=== PATIENT | female | born 1990 | race Caucasian/White ===

== ENCOUNTER 2017-08-16 14:34 | Inpatient (IN) ==
--- OUTSIDE RECORDS SUMMARY | 2017-08-16 14:39 | External Medical Summary | Continuity of Care Document ---
:1990 Author Organization [facility]. Allergies Active Description Code Type Severity Reaction Onset Reported/ Identified Relationship Clinical to Patient Status Yes Penicillins 476 3 N/A N/A Medications Medication Packaging Start Date Stop Date Route Dosage Sig Tablet 04/10/2017 05/01/2017 DICLEGIS take 1 tablet by oral route every day in the morning, 1 tablet in the mid-afternoo n, and 2 tablets at bedtime Tablet 05/01/2017 06/07/2017 DICLEGIS take 1 tablet by oral route every day in the morning, 1 tablet in the mid-afternoo n, and 2 tablets at bedtime Tablet 05/08/2017 06/07/2017 PREDNISONE take (0.5MG/KG) by oral route every day Problems Date Dx Coded Attending Type Code Diagnosis Diagnosed By 02/23/2014 Barrington SHERMAN MD V72.41 PREG LAN R EXAM-NEGATIVE 06/27/2016 Barrington SHERMAN MD R10.13 Epigastric pain ALN R 06/18/2017 Frederick Riley Z34.82 Encounter for L suprvsn of normal , second trimester 06/18/2017 Frederick Riley Z3A.19 19 weeks L gestation of Procedures Code Description Performed By Performed On BARI BYRNE MD, 02/23/2014 36381 CHORIONIC GONADOTROPIN LAN R ASSAY BARI BYRNE MD, 06/27/2016 90270 COMPREHEN METABOLIC PANEL LAN R BARI BYRNE MD, 06/27/2016 48037 COMPLETE CBC, AUTOMATED LAN R 06/18/2017 07289 Ultrasnd exam of preg uterus, compl Results Test Result Range CBC - 06/28/16 07:55 Eos # 0.10 x10^3 0-0.5 Eos % 1.5 % 0-4 HCT 39.4 % 37.0-47.0 HGB 13.6 G/DL 12.0-16.0 Lymph # 1.93 x10^3 1.0-4.0 Lymph % 28.5 % 20-50 MCH 29.7 PG 27.0-31.0 MCHC 34.5 G/DL 32.0-36.0 MCV 86.0 FL 81-99 Harris # 0.60 x10^3 0.0-0.8 Harris % 8.8 % 1.0-9.0 MPV 11.7 FL 6.0-10.0 Platelet 237 x10^3 150-400 RBC 4.58 x10^3 4.20-5.40 RDW 12.8 % 12-15 WBC 6.78 x10^3 4.8-10.8 Baso # 0.03 x10^3 0-0.2 Baso % 0.4 % 0-2 Neut % 60.8 % 50-70 Neut # 4.12 x10^3 3.0-7.0 Comprehensive Metabolic Panel - 06/28/16 08:11 Sodium 144 MMOLL 134-145 Potassium 4.1 MMOLL 3.6-5.0 Chloride 100 MMOLL 98-107 CO2 27 MMOLL 22-30 Glucose 76 MG/DL 75-110 BUN 20 MG/DL 9-20 Creatinine .78 MG/DL 0.8-1.7 Calcium 10.2 MG/DL 8.4-10.2 T Bili .5 MG/DL 0.2-1.3 T. Protein 7.4 G/DL 6.3-8.2 A/G Ratio 1.0 RATIO Albumin 3.7 G/DL 3.5-5.0 Alk Phos 63 U/L 38-126 ALT 37 U/L 11-66 AST 83 U/L 14-36 EGFR 92 MLMIN Encounters ACCT No. Visit Discharge Status Pt. Type Provider Facility Loc./Unit Complaint Date/Time [id number] 06/28/2016 06/28/2016 DIS Outpatien ULLOM [place] [facility] 07:34:00 07:34:00 t CHAVEZ Tiwari MD, [facility] R [id number] 02/23/2014 02/23/2014 DIS Outpatien ULLOM [place] [facility] 13:15:00 13:15:00 t CHAVEZ Tiwari MD, [facility] R [id number] 08/10/2017 08/10/2017 CLS Outpatien Sobbing, 14:00:00 23:59:59 t Frederick Octavio [id number] 07/12/2017 07/12/2017 CLS Outpatien Sobbing, 15:45:00 23:59:59 t Frederick Octavio [id number] 06/18/2017 06/18/2017 CLS Outpatien Sobbing, 15:45:00 23:59:59 t Frederick Octavio [id number] 06/07/2017 06/07/2017 CLS Outpatien Sobbing, 14:30:00 23:59:59 t Frederick Cunningham [id number] 05/08/2017 05/08/2017 CLS Outpatien Johnson, 08:30:00 23:59:59 t Megha Prescott [id number] 05/01/2017 05/01/2017 CLS Outpatien Johnson, 11:57:00 23:59:59 t Megha Prescott [id number] 04/10/2017 04/10/2017 CLS Outpatien Johnson, 08:30:00 23:59:59 t Megha Prescott [id number] 03/14/2017 03/14/2017 CLS Outpatien Hild, 11:05:00 23:59:59 isabel Clark
--- OUTSIDE RECORDS SUMMARY | 2017-08-16 14:39 | External Medical Summary | Continuity of Care Document ---
:1990 Author Organization [facility] Address [address] [place], [place] [address] Phone Allergies, Adverse Reactions, Alerts Substance Reaction Severity Status Penicillins Unknown Active Medications Medication Instructions Dosage Effective Dates Status Comments (start - stop) Oral Anesthetic 20 % - Active mucosal gel Tylenol 325 mg tablet take 2 tablet by oral 650 MG - Active route every 6 hours as needed Problems Condition Effective Dates (start - stop) Clinical Status Obesity complicating , second - trimester Encounter for suprvsn of normal - , second trimester 22 weeks gestation of - Encntr screen for infections w sexl - mode of transmiss Encounter for screening for oth - infec/parastc diseases Encounter for suprvsn of normal - , first trimester Encounter for screening of - mother 9 weeks gestation of - Unspecified contact dermatitis, - unspecified cause Encounter for suprvsn of normal - , first trimester 13 weeks gestation of - Encounter for suprvsn of normal - , second trimester 17 weeks gestation of - Encounter for suprvsn of normal - , second trimester 19 weeks gestation of - GERD Active Procedures Procedure Date OB Visit No Charge Results Test Name Date and Time Measure Units Reference Range Abnormal Flag Comments Unknown Advance Directives Directive Yes / No Effective Date File Name Unknown Encounters Encounter Practice Location Reason(s) Diagnoses Date Provider Care Team Description For Visit Members Associates Speedy Obesity Sobbing Referring In Womens complicating 7 Frederick. Provider: Health PA, , second 7 700 Megha PO [address] trimesterEncounte Medical Johnson T, 1522, r for suprvsn of Center [address] [place] [address], normal , [facility], second Suite Center [id number], weeks 120, Leoncio 120, [place] gestation of Speedy Ruff, tel:+ [place], [address], [id number]. [place]. tel: tel: [phone] Samuel Ruff Encounter for May-2 Sobbing Referring In Womens Ultrasound suprvsn of normal [place]. Provider: Jayne SANTIAGO, , second 7 700 Megha PO Box weeks Medical Johnson T, 1522, gestation of [address], [facility], Suite Center [id number], 120, Leoncio 120, [place] Speedy Ruff, tel:+ [place], [address], [id number]. [place]. tel: tel: [phone] Samuel Ruff Encounter for May- Sobbing Referring In Womens suprvsn of normal [place]. Provider: Jayne SANTIAGO, , second 7 700 Megha PO Box [email or web address] weeks Medical Johnson T, 1522, gestation of Center [address] [place] [address], [facility], Suite Center [id number], 120, Leoncio 120, [place] Speedy Ruff, tel:+ [place], [address], [id number]. [place]. tel: tel: [phone] Samuel Ruff Unspecified Jamie- Johnson Referring In Womens contact 3-201 Megha. Provider: Jayne SANTIAGO, dermatitis, 7 700 Megha PO Box unspecified Medical Johnson T, 1522, causeEncounter Center [address] [place] [address], for suprvsn of Leoncio Valle, normal , 120, Center [id number], first [email or web address] Leoncio Ruff 120, [place] weeks gestation Speedy OSULLIVAN, tel:+ of [phone] [place], , [place]. [id number]. tel: tel: [phone] Samuel Ruff Encntr screen for Johnson Referring In Womens infections w sexl 6-201 Megha. Provider: Health JACK, mode of 7 700 Megha [facility] Johnson T, 1522, r for screening Center [address] [place], for oth Dr, [facility] Medical [place], infec/parastc 120, Center [id number], diseasesEncounter Speedy, [facility] 120, [place] for suprvsn of Speedy OSULLIVAN, tel:2 normal , [phone] [place], [id number] first , [place]. [id number]. trimesterEncounte tel: tel: r for [phone] screening of mother9 weeks gestation of Family History Family Member Diagnosis Age At Onset No family history of Epilepsy No family history of Stroke No family history of Lung Disease No family history of Diabetes No family history of Ovarian Cancer No family history of Colon Cancer No family history of Osteoporosis No family history of Thyroid Disorder No family history of Cardiovascular Disease No family history of Hypertension No family history of Kidney Disease No family history of Breast Cancer Immunizations Vaccine Date Status Comments Unknown Payers Payer name Insurance type Covered green party ID Authorization(s) [facility] [id number] Social History Type Description Quantity Date Captured Alcohol Use Details No Caffeine Use Details Unknown Tobacco Use Status Smoking Status Former smoker Vital Signs Date / Height Weight BMI Pulse Blood Temperature Respiratory Body Head BMI Time: Rate Pressure Rate Surface Circumference percentile Area 204.00 33.9 126/72 -2017 lbs 4 mm[Hg] 4:14 kg/m PM eter (2) Chief Complaint And Reason For Visit Unknown Chief Complaint And Reason For Visit Reason For Referral Reason For Referral Unknown Plan Of Care Date Type Action Status Appointment Cari An BOOKED Future Order: Radiology Order Complete OB Ultrasound > 14 Ordered Weeks ([id number]) Date Type Problem Goal Intervention Status Start Date Unknown. History Of Present Illness Encounter Date Complaint History Of Present Illness This patient has no known history of present illness Functional Status Encounter Date Functional Assessment Cognitive Assessment Unknown Medications Administered Medication Instructions Dosage Effective Dates (start - stop) Status Comments Drug Treatment Unknown Instructions Date Instruction Additional Information HIV and other routine tests May-16-2017 risk factors identified by history anticipated course of care nutrition and weight gain counseling, special diet toxoplasmosis precautions (cats / raw meat) sexual activity exercise indications for ultrasound influenza vaccine environmental / work hazards travel tobacco (ask, advise, assess, assist and arrange) alcohol illicit / recreational drugs use of any medications (including supplements, vitamins, herbs, OTC drugs) smoking counseling domestic violence seat belt use childbirth classes / hospital facilities hospital registration genetic testing new ob handbook
--- OUTSIDE RECORDS SUMMARY | 2017-08-16 14:39 | External Medical Summary | Continuity of Care Document ---
:1990 Author Organization [facility] Address [address] [place], [place] [id number] Phone Allergies, Adverse Reactions, Alerts Substance Reaction Severity Status Penicillins Unknown Active Medications Medication Instructions Dosage Effective Dates Status Comments (start - stop) Tylenol 325 mg tablet take 2 tablet by oral 650 MG - Active route every 6 hours as needed Problems Condition Effective Dates (start - stop) Clinical Status Encounter for suprvsn of normal - , second trimester 19 weeks gestation of - Encntr screen for [...] second trimester 17 weeks gestation of - GERD Active Procedures Procedure Date Ultrasound exam of preg uterus, complete Results Test Name Date and Time Measure Units Reference Range Abnormal Flag Comments Unknown Advance Directives Directive Yes / No Effective Date File Name Unknown Encounters Encounter Practice Location Reason(s) Diagnoses Date Provider Care Team Description For Visit Members Samuel Ruff Encounter for Sobbing Referring In [facility] Ultrasound suprvsn of normal 4-201 Frederick. Provider: Health MA, , second 7 700 Megha PO Box [email or web address] weeks Medical Elizabeth T, 1522, gestation of Center [address] [place], [facility], Suite Center [id number], 120, Leoncio 120, [place] Speedy Ruff, [place]: [place], [address], [id number]. [place]. tel: tel: [phone] Samuel Ruff Encounter for May- Sobbing Referring In Womens suprvsn of normal 3-201 [place]. Provider: Jayne SANTIAGO, , second 7 700 Megha PO Box weeks Medical Johnson T, 152, gestation of Center [address] [place] [address], Drive, [facility], Suite Center [id number], 120, Leoncio 120, [place] Speedy Ruff, tel: [place], [address], [id number]. [place]. tel: tel: [phone] Samuel Ruff Unspecified Jamie-1 Johnson Referring In Womens contact 3-201 Megha. Provider: Jayne SANTIAGO, dermatitis, 7 700 Megha PO Box unspecified Medical Johnson T, 152, causeEncounter Center [address] [place] [address], for suprvsn of Dr [facility] SHI, normal , 120, Center [id number], first [email or web address] Ruff, Leoncio 120, [place] weeks gestation Speedy OSULLIVAN, tel: of [phone] [place], , [place]. [id number]. tel: tel: [phone] Samuel Ruff Encntr screen for March- Johnson Referring In Womens infections w sexl 6-201 Megha. Provider: Jayne SANTIAGO, mode of 7 700 Megha PO Box transmissEncounte Medical Johnson T, 152, r for screening Center [address] [place] [address], for oth Dr [facility], infec/parastc 120, Center [id number], diseasesEncounter Speedy, Leoncio 120, [place] for suprvsn of Speedy OSULLIVAN, tel: normal , [phone] [place], first , [place]. [id number]. trimesterEncounte tel: tel:316 r for [phone] screening of mother9 weeks gestation of Family [...] Unknown Payers Payer name Insurance type Covered alliance party ID Authorization(s) [employer] [id number] Social History Type Description Quantity Date Captured Unknown Vital Signs Date / Height Weight BMI Pulse Blood Temperature Respiratory Body Head BMI Time: Rate Pressure Rate Surface Circumference percentile Area Unknown Chief Complaint And Reason For Visit Unknown Chief Complaint And Reason For Visit Reason For Referral Reason For Referral Unknown Plan Of Care Date Type Action Status Appointment Cari An BOOKED Future Order: Radiology Order Complete OB Ultrasound > 14 Ordered Weeks ([id number]) Date Type Problem Goal Intervention Status Start Date Unknown. History Of Present Illness Encounter Date Complaint History Of Present Illness This patient has no known history of present illness Functional Status Encounter Date Functional Assessment Cognitive Assessment Unknown Medications Administered Medication Instructions Dosage Effective Dates (start - stop) Status Comments Drug Treatment Unknown Instructions Date Instruction Additional Information HIV and other routine tests risk factors identified by history anticipated course [...]
--- OUTSIDE RECORDS SUMMARY | 2017-08-16 14:39 | External Medical Summary ---
:1990 Author Organization [facility]. Summary purpose CCDA Sent to [facility] Chief Complaint and Reason for Visit No authorized Reason for Visit (Admitting Diagnosis) is available for this visit. Problem list No authorized problems tracked for continuity of care are available for this visit. Encounters No authorized problems tracked for encounter diagnoses are available for this visit. Medications No medications recorded for this patient visit Allergies, adverse reactions, alerts No allergy information is available for this patient. Immunizations No immunizations recorded for this patient visit Relevant diagnostic tests and/or laboratory data RESULTS CBC :40:00 Result Normal Range Units WBC 6.78 4.8-10.8 x103/mm3 Neutrophil % 60.8 50-70 % Lymph % 28.5 20-50 % Deuel % 8.8 1.0-9.0 % Eosinophil % 1.5 0-4 % Basophil % 0.4 0-2 % Neutrophil # 4.12 3.0-7.0 x103/mm3 Lymph # 1.93 1.0-4.0 x103/mm3 Deuel # 0.60 0.0-0.8 x103/mm3 Eosinophil # 0.10 0-0.5 x103/mm3 Basophil # 0.03 0-0.2 x103/mm3 RBC 4.58 4.20-5.40 x103/mm3 HGB 13.6 12.0-16.0 g/dl HCT 39.4 37.0-47.0 % MCV 86.0 81-99 FL MCH 29.7 27.0-31.0 pg MCHC 34.5 32.0-36.0 g/dl RDW 12.8 12-15 % Platelet 237 150-400 x103/mm3 MPV H 11.7 6.0-10.0 FL Chemistry Group :40:00 Result Normal Range Units Sodium 144 134-145 mmol/L Potassium 4.1 3.6-5.0 mmol/L Chloride 100 98-107 mmol/L CO2 27 22-30 mmol/L Glucose 76 75-110 mg/dl BUN 20 9-20 mg/dl Creatinine L .78 0.8-1.7 mg/dl eGFR 92 ml/min. Total Protein 7.4 6.3-8.2 g/dl Albumin 3.7 3.5-5.0 g/dl Calcium 10.2 8.4-10.2 mg/dl Alk Phos 63 38-126 U/L AST H 83 14-36 U/L ALT 37 11-66 U/L T Bili .5 0.2-1.3 mg/dl A/G Ratio 1.0 Ratio History of procedures Procedure Code Code Type Description Date Performed Performing Physician 45906 CPT-4 COMPLETE CBC, 06-27-2016 LAN DUKES AUTOMATED 95969 CPT-4 COMPREHEN METABOLIC 06-27-2016 [facility] BARI DUKES PANEL Functional status No functional or cognitive status observations are available for this visit. Vital signs No authorized vital signs are available for this visit. Social history No Social History or smoking status observations were recorded for this visit. ( Unknown if ever smoked.) Treatment Plan No treatment plan text is available for this visit. Hospital discharge instructions No discharge instruction text is available for this visit.
--- OUTSIDE RECORDS SUMMARY | 2017-08-16 14:39 | External Medical Summary | Continuity of Care Document ---
:1990 Author Organization [facility] Address [address] [place], [place] [id number] Phone Allergies, Adverse Reactions, Alerts Substance Reaction [...] Speedy Obesity Sobbing Referring In Womens complicating 7-201 Frederick. Provider: Health PA, , second 7 700 Megha PO Box trimesterEncounte Medical Johnson T, 1522, r for suprvsn of Center [address] [place] [address], normal , [facility], second Suite Center [id number], [email or web address] weeks 120, Leoncio 120, [place] gestation of Speedy Ruff, tel:+ [place], [address], [id number]. [place]. tel: tel: [phone] Samuel Ruff Encounter for May-2 Sobbing Referring In Womens Ultrasound suprvsn of normal [place]. Provider: Jayne SANTIAGO, , second 7 700 Megha PO Box weeks Medical Johnson T, 1522, gestation of [address], [facility], Suite Center [id number], 120, Leoncio 120, [place] Speedy Rfuf, tel:+ [place], [address], [id number]. [place]. tel: tel: [phone] Samuel Ruff Encounter for May- Sobbing Referring In Womens suprvsn of normal [place]. Provider: Jayne SANTIAGO, , second 7 700 Megha PO Box [email or web address] weeks Medical Johnson T, 1522, gestation of Center [address] [place] [address], [facility], Suite Center [id number], 120, Leoncio 120, [place] Speedy Ruff, tel:+ [place], [address], [id number]. [place]. tel: tel: [phone] Samuel Ruff Unspecified Jamie- Johnson Referring In Womens contact 3-201 Megha. Provider: Jayne SANTIAGO, dermatitis, 7 700 Megha PO Box unspecified Medical Johnson T, 1522, causeEncounter Center [address] [place] [address], for suprvsn of Leoncio Valle, normal , 120, Center [id number], first [email or web address] Leoncio Ruff 120, [place] weeks gestation Speedy OSULLIVAN, tel:+ of [phone] [place], , [place]. [id number]. tel: tel: [phone] Samuel Ruff Encntr screen for Johnson Referring In Womens infections w sexl 6-201 Megha. Provider: Jayne SANTIAGO, mode of 7 700 Megha [facility] Johnson T, 1522, r for screening Center [address] [place], for oth Dr, [facility] Medical [place], infec/parastc 120, Center [id number], diseasesEncounter Speedy, [facility] 120, [place] for suprvsn of Speedy OSULLIVAN, tel:2 normal , [phone] [place], [address] first , [place]. [id number]. trimesterEncounte tel: tel: r for [phone] screening of mother9 weeks gestation of Family [...] Insurance type Covered green party ID Authorization(s) [facility] [id number] Social History Type Description Quantity Date Captured [...] Of Care Date Type Action Status Appointment Anshul An BOOKED Future Order: Radiology Order Complete OB Ultrasound > 14 Ordered Weeks ([id number]) Date Type Problem Goal Intervention Status Start [...]
--- OUTSIDE RECORDS SUMMARY | 2017-08-16 14:39 | External Medical Summary | Continuity of Care Document ---
:1990 Author Organization [facility] Address [address] [place], [place] [phone] Phone Allergies, Adverse Reactions, Alerts Substance Reaction [...] second trimester 17 weeks gestation of - Encntr screen for [...] Encounter for Sobbing Referring In [facility] Ultrasound suprvsn of normal 4-201 Frederick. Provider: [facility], , second 7 700 Megha PO Box [email or web address] weeks Medical Elizabeth T, 1522, gestation of Center 700 [facility], Suite Center , 120, Leoncio 120, [place] Speedy Ruff, tel: [place], [address], [id number]. [place]. tel: tel: [phone] Samuel Ruff Encounter for Tomasz-1 Sobbing Referring In Womens suprvsn of normal 3-201 [place]. Provider: Jayne SANTIAGO, , second 7 700 Megha PO Box [email or web address] weeks Medical Johnson T, 152, gestation of Center [address] [place] [address], Drive, Medical [place], Suite Center [id number], 120, Leoncio 120, [place] Speedy Ruff, [place]: [place], [address], [id number]. [place]. tel: tel: [phone] Samuel Ruff Unspecified Jamie-1 Johnson Referring In Womens contact 3-201 Megha. Provider: Jayne SANTIAGO, dermatitis, 7 700 Megha PO Box unspecified Medical Johnson T, 152, causeEncounter Center [address] [place] [address], for suprvsn of Dr [facility] Lavonne OSULLIVAN, normal , 120, Center [id number], first [email or web address] Ruff, [facility] 120, [place] weeks gestation Speedy OSULLIVAN, tel: of [place], , [place]. [id number]. tel: tel: [phone] Samuel Ruff Encntr screen for March- Johnson Referring In Womens infections w sexl 6-201 Megha. Provider: Jayne SANTIAGO, mode of 7 700 Megha PO Box transmissEncounte Medical Johnson T, 152, r for screening Center [address] [place] [address], for oth Dr [facility] SHI, infec/parastc 120, Center [id number], diseasesEncounter Speedy, Leoncio 120, [place] for suprvsn of Speedy OSULLIVAN, tel: normal , [phone] [place], first , [place]. [id number]. trimesterEncounte tel: tel:316 r for [phone] screening of mother9 weeks gestation of Family [...] Insurance type Covered alliance party ID Authorization(s) [employer] [id number] Social History Type Description Quantity Date Captured Alcohol Use Details No Caffeine Use Details Unknown Tobacco Use Status Smoking Status Former smoker Vital Signs Date / Height Weight BMI Pulse Blood Temperature Respiratory Body Head BMI Time: Rate Pressure Rate Surface Circumference percentile Area 200.60 33.3 124/ lbs 8 mm[Hg] 2:41 kg/m PM eter (2) Chief Complaint And Reason For Visit Unknown Chief Complaint And Reason For Visit Reason For Referral Reason For Referral Unknown Plan Of Care Date Type Action Status Appointment Cari An BOOKED Future Order: Radiology Order Complete OB Ultrasound > 14 Ordered Weeks ([id number]) Date Type Problem Goal Intervention Status Start [...]
[2017-08-16 15:08] VITALS: BMI 34.0
[2017-08-16] MEDS: LR 1,000 ML IV SCH (15:09)
[2017-08-16] MEDS: HYDROMORPHONE 2 MG/ML INJECTION IVP PRN ×3 (15:42→20:56)
--- NOTE | 2017-08-16 16:57 | Ultrasound Report ---
Indication: abdominal pain PROCEDURE: US OB fht only: Encounter: Initial Comparison: None LMP dating is not provided Comparison: None PROCEDURE: US OB fht only: Technique: Grayscale and color Doppler transabdominal sonographic imaging was performed. Findings: Single living intrauterine gestation. Cervix is normal length and closed. Placenta is posterior. cardiac activity detected at a rate of 138 bpm. Amniotic fluid index is normal at 20.3 cm. Largest vertical pocket in the right upper quadrant is 7.1 cm. Impression: Amniotic fluid index as above. .
--- NOTE | 2017-08-16 16:59 | Ultrasound Report ---
Indication: abdominal pain PROCEDURE: US appendix: Encounter: Initial Comparison: None Technique: Grayscale sonographic imaging of the right lower quadrant abdomen was performed. Findings/ Impression: A candidate appendix was not visualized. No free fluid or adenopathy seen. .
--- NOTE | 2017-08-16 16:59 | Ultrasound Report ---
Indication: abdominal pain PROCEDURE: US renal BI: Encounter: Initial Comparison: None Technique: Grayscale and color Doppler sonographic imaging of both kidneys and bladder was performed. FINDINGS: Both kidneys are present with normal cortical thickness and echogenicity. Mild right and minimal left hydronephrosis. No obvious stone disease. The right kidney measures 12 cm in length, and the left kidney measures 12 cm in length. Bladder appears sonographically normal. Bilateral ureteral jets were seen. IMPRESSION: Mild right and minimal left hydronephrosis. .
--- NOTE | 2017-08-16 17:22 | OB/GYN History & Physical ---
- History of Present Illness Date of Admission: 08/16/17 14:34 Reason for Admission: other (Abdominal pain) History of Present Illness: 26 y/o female at 27.6 wga presented to the office with acute onset of abdominal pain that was severe she reported eating well the last couple days and positive fm. Denies LOF, VB. pain is intermentant and was getting worse. Exam in office showed abdominal TTP ND, McBurney sign negative and no rebound. She had a UA in office that was positive for blood and Ketones. She was sent to for eval along with fluids and pain control. She is resting comfortable in bed : 2 Review of Systems - Cardiovascular Cardiovascular: Absent: chest pain, palpitations - Respiratory Respiratory: Absent: cough, dyspnea, wheezing - Gastrointestinal Gastrointestinal: Absent: change in bowel habits, constipation, diarrhea, nausea , vomiting - Genitourinary Genitourinary: Present: as per HPI Menstruation: Present: as per HPI - Musculoskeletal Musculoskeletal: Absent: arthralgias, back pain - Integumentary/Breasts Integumentary: Absent: pruritus, rash - Neurological Neurological: Absent: dizziness, headache(s), numbness - Psychiatric Psychiatric: Absent: anxiety, depression - Endocrine Endocrine: Absent: cold intolerance, heat intolerance [facility] Patient Stated Medical History Herpes No Human Immunodeficiency Virus ( No HIV) Maternal Gestational Diabetes No Medications Allergies Allergy/AdvReac Type Severity Reaction Status Date / Time Penicillins Allergy Verified 08/16/17 15:07 Exam Vital signs: Temperature 99.3 F 08/16/17 16:53 Pulse Rate 108 H 08/16/17 14:34 Respiratory Rate 20 08/16/17 14:34 Blood Pressure 141/86 H 08/16/17 14:34 Pulse Oximetry 99 08/16/17 14:34 - Constitutional Present: no acute distress - Neck Exam Present: supple - Respiratory Exam Present: CTA bilaterally - Cardiovascular Exam Present: RRR. Absent: murmur - Abdominal Exam Present: soft Comments: Gravid - Detailed Pelvic Exam Bladder: Present: tenderness - Extremities Exam Extremities: Present: no edema - Neurological Exam Present: alert, oriented X3 PLATE EMBOSSER Results - Labs CBC & Chem 7: 08/16/17 15:04 08/16/17 15:04 Labs: UA Ur Collection Type Urine, clean catch 08/16/17 14:30 Urine Color Yellow (YELLOW) 08/16/17 14:30 Urine pH 6.0 (5.0-8.0) 08/16/17 14:30 Ur Specific [place] 1.025 (1.015-1.025) 08/16/17 14:30 Urine Protein Negative (NEGATIVE) 08/16/17 14:30 Urine Glucose (UA) Negative (NEGATIVE) 08/16/17 14:30 Urine Ketones 3+ (NEGATIVE) A 08/16/17 14:30 Urine Occult Blood 2+ (NEGATIVE) A 08/16/17 14:30 Urine Nitrate Negative (NEGATIVE) 08/16/17 14:30 Urine Bilirubin Negative (NEGATIVE) 08/16/17 14:30 Urine Urobilinogen 0.2 EU/DL (NORMAL) 08/16/17 14:30 Ur Leukocyte Esterase Negative (NEGATIVE) 08/16/17 14:30 Antepartum Assessment and Plan (1) Cystitis during in second trimester, antepartum Problem details: Renal sonom neg, Abd sono neg for appendicitis, WBC normal for . Awaiting urine cx will start Rochephine treat as Pyelonephritis and continue observation, continue NPO for now PCN all is not true all her dad was allergic not her. Current visit: Yes Status: Acute
[2017-08-16] MEDS ORDERED: CEFTRIAXONE 1 G in NS 100 ML IV SCH (17:30)
[2017-08-16] MEDS ORDERED: DiphenhydrAMINE 50 MG/ML INJECTION IVP PRN (17:42)
[2017-08-16] MEDS: NS 1,000 ML IV SCH ×2 (18:13→21:52)
[2017-08-17] MEDS: LR 1,000 ML IV SCH ×3 (00:13→21:15)
[2017-08-17] MEDS: HYDROMORPHONE 2 MG/ML INJECTION IVP PRN ×10 (00:13→22:41)
[2017-08-17] MEDS ORDERED: LR 1,000 ML IV SCH (09:00)
--- NOTE | 2017-08-17 09:44 | OB/GYN Progress Note ---
GROMMET MAN Progress Note - Subjective Today's Date: 08/17/17 Pain controlled over night with IV Dilaudid. Denies N/V, denies F/C. Positive FM - Objective Vital signs: Temperature 98.1 F 08/17/17 06:40 Pulse Rate 93 08/17/17 06:40 Respiratory Rate 18 08/17/17 06:40 Blood Pressure 114/60 08/17/17 06:40 Pulse Oximetry 100 08/17/17 06:40 Urine Output: good General: alert and oriented Respiratory: non-labored Abdomen: tender, rebound, guarding Extremities: non-tender Edema: none Laboratory Result: 08/17/17 06:12 08/16/17 15:04 Labs: UA Ur Collection Type Urine, clean catch 08/16/17 14:30 Urine Color Yellow (YELLOW) 08/16/17 14:30 Urine pH 6.0 (5.0-8.0) 08/16/17 14:30 Ur Specific [place] 1.025 (1.015-1.025) 08/16/17 14:30 Urine Protein Negative (NEGATIVE) 08/16/17 14:30 Urine Glucose (UA) Negative (NEGATIVE) 08/16/17 14:30 Urine Ketones 3+ (NEGATIVE) A 08/16/17 14:30 Urine Occult Blood 2+ (NEGATIVE) A 08/16/17 14:30 Urine Nitrate Negative (NEGATIVE) 08/16/17 14:30 Urine Bilirubin Negative (NEGATIVE) 08/16/17 14:30 Urine Urobilinogen 0.2 EU/DL (NORMAL) 08/16/17 14:30 Ur Leukocyte Esterase Negative (NEGATIVE) 08/16/17 14:30 - Assessment and Plan (1) Cystitis during in second trimester, antepartum Assessment and Plan: 26 y/o at 28 wga with Abdominal pain -pain not improved and increasing in symptoms including guarding and rebound. Renal sono negative for stones, pain not c/w with pyleonephritis Appendicitis suspected. Discussed with general surgeon wiil move to OR for DX laparoscopy possible appendectomy. Discussed R/B/A to procedure with pt including infection, injury to bowel, bladder, uterus, . Bleeding with need for transfusion. labor/ delivery and need for transfer to [facility]. and . questions elicited and answered. Comment: Renal sonom neg, Abd sono neg for appendicitis, WBC normal for . Awaiting urine cx will start Rochephine treat as Pyelonephritis and continue observation, continue NPO for now PCN all is not true all her dad was allergic not her. [facility] day 2 symptoms increasing suspicous for appendicitis. Move to OR with general surgery.
[2017-08-17] MEDS ORDERED: CEFAZOLIN 1 G INJECTION IVP ONE (09:47)
[2017-08-17] MEDS ORDERED: FentaNYL 100 MCG/2 ML INJECTION ONE ×3 (10:11→12:02)
[2017-08-17] MEDS ORDERED: ROCURONIUM 50 MG/5 ML INJECTION IVP ONE ×2 (10:11→12:40)
--- NOTE | 2017-08-17 10:49 | Anesthesia Preoperative Report ---
Anesthesia Preoperative Record - Date and Time Date: 08/17/17 Preoperative Diagnosis: Allergies/Adverse Reactions: Allergies Allergy/AdvReac Type Severity Reaction Status Date / Time Penicillins Allergy Verified 08/16/17 15:07 - Vital Signs Vital Signs: Temperature 98.1 F 08/17/17 06:40 Pulse Rate 93 08/17/17 06:40 Respiratory Rate 18 08/17/17 06:40 Blood Pressure 114/60 08/17/17 06:40 Pulse Oximetry 100 08/17/17 06:40 Height and Weight: Height 1.68 m Weight 95.708 kg Body Mass Index 34.0 - Medications Inpatient Medications: Current Medications Diphenhydramine HCl (Benadryl) 25 - 50 mg IVP Q6HR PRN PRN Reason: Itching Last Admin: 08/16/17 21:23 Dose: 50 mg Hydromorphone HCl (Dilaudid) 1 mg IVP Q2H PRN PRN Reason: Pain Last Admin: 08/17/17 08:59 Dose: 1 mg Lactated Ringer's (Lactated Ringers) 1,000 mls @ 125 mls/hr IV .Q8H [facility] Last Admin: 08/17/17 00:13 Dose: Not Given Ceftriaxone Sodium 1 g/ Sodium (Chloride) 100 mls @ 200 mls/hr IV Q24H [facility] Last Infusion: 08/16/17 19:00 Dose: Infused Sodium Chloride (Normal Saline) 1,000 mls @ 75 mls/hr IV .[id number] [facility] Last Infusion: 08/17/17 09:10 Dose: 0 mls/hr - Surgical History Reproductive Surgery/Treatment: DENIES: Section Anesthesia Reactions: None Hx Family Anesthesia Reaction: No History of Motion Sickness: No - Social History Smoking Status: Never smoker Substance Use Type: does not use Alcohol Intake Frequency: holidays/special occasions only Last Drink: unknown - Pertinent Findings Laboratory: CBC and BMP 08/17/17 06:12 08/16/17 15:04 BMP 08/16/17 15:04 Sodium 140 Potassium 3.6 Chloride 110 H Carbon Dioxide 20 L BUN 6.0 L Creatinine 0.4 L Glucose 71 Calcium 9.3 Liver Function 08/16/17 Range/Units 15:04 Total Bilirubin 0.50 (0.20-1.30) MG/DL AST 17 (14-36) U/L ALT 28 (9-52) U/L Alkaline Phosphatase 83 (38-126) U/L Albumin 3.7 (3.5-5.0) G/DL Urine 08/16/17 Range/Units 14:30 Urine Color Yellow (YELLOW) Urine Clarity Clear Urine pH 6.0 (5.0-8.0) Ur Specific [place] 1.025 (1.015-1.025) Urine Protein Negative (NEGATIVE) Urine Glucose (UA) Negative (NEGATIVE) EKG: Sinus Tachycardia - Physical Exam Respiratory Exam: Present: lungs clear, bilateral breath sounds equal Cardiovascular Exam: Present: regular rate and rhythm, no murmur - Airway Assessment Mallampati Score: I TMD: 3 Fingerbreadths Neck Extension: good Overall Assessment: no airway concerns - ASA ASA Score: 1 - Plan Anesthesia: General Inhalation Gases - Discussion Discussion: Discussed risks/options/alternatives of anesthesia and questions answered. Patient consents. Nursing pain assessment noted. Present for Discussion: spouse Attestation Statement: Prior to the delivery of any anesthetic medication, I examined the patient, developed the plan, obtained the patient's consent and discussed the risk and benefits of the procedure with the patient/guardian. - Additional Information Seen by Anesthesia: Yes
[2017-08-17] MEDS ORDERED: BUPIVACAINE 0.25% (2.5mg/ml) PF 30ml INJECTION ONE (11:11)
[2017-08-17] MEDS ORDERED: LACRI-LUBE EYE OINT 3.5gm ONE (11:46)
[2017-08-17] MEDS ORDERED: DEXAMETHASONE 4 MG/ML INJECTION ONE (11:47)
[2017-08-17] MEDS ORDERED: ONDANSETRON 4 MG/2 ML INJECTION ONE (11:47)
[2017-08-17] MEDS: NS 1,000 ML IV SCH ×3 (12:19→15:16)
[2017-08-17] MEDS ORDERED: MORPHINE SULFATE 2 MG SYRINGE IVP PRN (12:48)
[2017-08-17] MEDS ORDERED: ONDANSETRON 4 MG/2 ML INJECTION IVP PRN (12:48)
--- NOTE | 2017-08-17 12:48 | OB/GYN Procedure Note ---
CHILD DEVELOPMENT SPECIALIST Operative Note Date of Operation: 08/17/17 Comments: suspected appendicitis, 28 wga Postoperative Diagnosis: Same as Preoperative Comments: Confirmed appendicitis CHILD DEVELOPMENT SPECIALIST Procedure: Dx Laparoscopy (Appendectomy) Surgeon: Eliseo Kwong MD Comments: Frederick Riley MD Anesthesia Provider: Connor Durbin MD Anesthesia Type: General Estimated Blood Loss:: Minimal Findings: Purelent fluid in right pericolic gutter, Inflamed appendix with filmy adhesions Description of Procedure: See dictation
[2017-08-17] MEDS ORDERED: BUPIVACAINE 0.25% (2.5mg/ml) PF 30ml INJECTION INFIL ONE (13:10)
[2017-08-17] MEDS ORDERED: METOCLOPRAMIDE 10mg/2ml INJECTION IM ONE (13:46)
[2017-08-17] MEDS ORDERED: METOCLOPRAMIDE 10mg/2ml INJECTION IVP ONE (13:50)
--- NOTE | 2017-08-17 14:11 | Anesthesia Postoperative Note ---
- Status Patient Participated in Evaluation: Patient Participated in Person Vital Signs: Temperature 98.7 F 08/17/17 13:47 Pulse Rate 111 H 08/17/17 13:45 Respiratory Rate 26 H 08/17/17 13:45 Blood Pressure 139/77 08/17/17 13:45 Pulse Oximetry 91 08/17/17 13:45 Respiratory Function: Airway Patent EKG: Sinus Tachycardia Hydration: IV Infusing Complications During Recover: None Apparent Post Anesthesia Care Notes: additional analgesic required in PACU due to rapid metabolism as noted intraop for rocuronium muscle relaxant. - Follow-Up Instructions Instructions: Per Surgeon
--- NOTE | 2017-08-17 14:37 | OB/GYN Progress Note ---
SASH MAKER Post Op Progress Note - General Date: 08/17/17 POD:: Post Op Check Pain: controlled Nausea or Vomiting: No Ambulating: No - Objective Vital Signs: Vital Signs Temp 98.7 F 08/17/17 13:47 Pulse 111 H 08/17/17 13:45 Resp 26 H 08/17/17 13:45 BP 139/77 08/17/17 13:45 Pulse Ox 91 08/17/17 13:45 Urine Output: good General: alert and oriented Cardiovascular: regular rate,rhythm Respiratory: non-labored Abdomen: soft (Doing well post op, plan dismissal POD#1, Unasyn until dismissal ), tender, rebound, guarding Extremities: non-tender Edema: none Laboratory Results: 08/17/17 06:12 08/16/17 15:04 Labs: UA Ur Collection Type Urine, clean catch 08/16/17 14:30 Urine Color Yellow (YELLOW) 08/16/17 14:30 Urine pH 6.0 (5.0-8.0) 08/16/17 14:30 Ur Specific [place] 1.025 (1.015-1.025) 08/16/17 14:30 Urine Protein Negative (NEGATIVE) 08/16/17 14:30 Urine Glucose (UA) Negative (NEGATIVE) 08/16/17 14:30 Urine Ketones 3+ (NEGATIVE) A 08/16/17 14:30 Urine Occult Blood 2+ (NEGATIVE) A 08/16/17 14:30 Urine Nitrate Negative (NEGATIVE) 08/16/17 14:30 Urine Bilirubin Negative (NEGATIVE) 08/16/17 14:30 Urine Urobilinogen 0.2 EU/DL (NORMAL) 08/16/17 14:30 Ur Leukocyte Esterase Negative (NEGATIVE) 08/16/17 14:30 - Assessment (1) Cystitis during in second trimester, antepartum Comment: Renal sonom neg, Abd sono neg for appendicitis, WBC normal for . Awaiting urine cx will start Rochephine treat as Pyelonephritis and continue observation, continue NPO for now PCN all is not true all her dad was allergic not her. [facility] day 2 symptoms increasing suspicous for appendicitis. Move to OR with general surgery. Status: Acute
--- NOTE | 2017-08-17 14:37 | Consultation ---
DATE OF CONSULTATION 08/17/2017 HISTORY OF PRESENT ILLNESS This 26-year-old patient with a 28-week intrauterine was admitted to [facility] on 08/16/2017 with acute abdominal pain. Urinalysis at the office was positive for blood and ketones. At admission to [facility] on 08/16/2017, white blood cell count was 15,100 with 4 bands. Ultrasound examination of the abdomen looking for the appendix was performed on 08/16/2017. The appendix was not able to be visualized at this ultrasound exam. A renal ultrasound examination was performed on 08/16/2017 which showed mild right and minimal left hydronephrosis. Treatment with Rocephin was started on 08/16/2017. The abdominal pain was not improved on 08/17/2017. The patient states that the abdominal pain is worse on 08/17/2017 than it was on the previous evening. Dr. Riley thought that the patient had increased guarding and rebound at abdominal examination on 08/17/2017 compared to the previous day. The patient states that her abdominal pain was initially more of a generalized abdominal pain. She states that the pain has localized down to the right lower quadrant of the abdomen over the last 24 hours. The patient states that when someone pushes on the left side of her abdomen, she feels pain at the right lower quadrant of the abdomen. The abdominal pain is now worse in intensity and more localized to the right lower quadrant. The clinical findings are thought to be more suspicious for acute appendicitis at this time. Repeat white blood cell count on 08/17/[address] Riley has recommended diagnostic laparoscopy to look for acute appendicitis as a cause for the abdominal pain. PAST MEDICAL HISTORY Previous operations: Umbilical hernia repair as a child. PHYSICAL EXAMINATION VITAL SIGNS: Temperature is 98.1 degrees Fahrenheit oral. Pulse is 93. Respiratory rate is 18. Blood pressure is 114/60. Oxygen saturation is 100% on room air. ABDOMEN: There is an old infraumbilical incision scar. Gravid state of the abdomen is present. There is abdominal tenderness at examination of the abdomen. This seems to be more prominent at the right lower quadrant of the abdomen than elsewhere. The patient did state that palpation of the left side of the abdomen caused pain at the right lower quadrant of the abdomen. The abdomen is soft. LABORATORY DATA White blood cell count was 15,100 with 4 bands on 08/16/2015. White blood cell count was 9400 with no bands on 08/17/2017 after some treatment with Rocephin. IMAGING DATA The patient did have ultrasound examination of the appendix attempted on 2016 but the appendix was not able to be visualized at this imaging study. The patient did undergo a renal ultrasound on 08/16/2017 which showed mild right and minimal left hydronephrosis. IMPRESSION 1. 28-week intrauterine . 2. Acute right lower quadrant abdominal pain suspicious for possible acute appendicitis. PATIENT EDUCATION I did talk with the patient about the option of undergoing diagnostic laparoscopy with possible appendectomy, as recommended by Dr. Riley, for further evaluation. The nature of this procedure was explained to the patient [id number]. Expected benefits were reviewed. Alternatives were reviewed. One alternative would be to treat the patient with a course of antibiotic treatment. Potential risks and complications of diagnostic laparoscopy with possible appendectomy were discussed with the patient including anesthetic risk to the patient and the fetus. Another risk would be bleeding. Another risk would be infection. Risks of wound healing problems were discussed. Risks of injury to intraabdominal structures were discussed. The chance that a laparoscopy procedure might need to be converted over to an open laparotomy procedure was discussed. Questions were solicited from the patient. All of her questions were answered. The patient does wish to proceed. PLAN Diagnostic laparoscopy with possible appendectomy for evaluation of acute right lower quadrant abdominal pain. CAMILO
[2017-08-17] MEDS: AMPICILLIN/SULBACTAM 3 G in NS 100 ML IV SCH ×2 (14:52→21:01)
[2017-08-17] MEDS: Oxycodone/Acetaminophen 5/325 1 TAB PO PRN ×2 (16:44→20:57)
[2017-08-17] MEDS ORDERED: DiphenhydrAMINE 25 MG CAPSULE PO PRN (22:21)
[2017-08-18] MEDS: OXYCODONE/APAP 7.5 MG/325 MG TABLET PO PRN ×3 (01:04→10:19)
[2017-08-18] MEDS: AMPICILLIN/SULBACTAM 3 G in NS 100 ML IV SCH ×2 (03:41→10:15)
[2017-08-18 03:49] VITALS: PULSE 100
--- NOTE | 2017-08-18 08:20 | Operative Note ---
DATE OF OPERATION 08/17/2017 PREOPERATIVE DIAGNOSES 1. Acute appendicitis. 2. Intrauterine at 28 weeks gestation. POSTOPERATIVE DIAGNOSES 1. Acute appendicitis. 2. Intrauterine at 28 weeks gestation. OPERATION Laparoscopic appendectomy. SURGEON Eliseo Kwong MD [employer] Frederick Riley DO ANESTHESIA General ASA CLASS 2 FINDINGS This patient did have an intrauterine at 28 weeks gestation. The patient did have acute appendicitis. The appendix was acutely inflamed. There was inflammatory exudate over the surface of the appendix and mesoappendix. The appendix was adherent to surrounding structures. There was purulent fluid around the appendix. The appendix did not appear to be perforated. There was no periappendiceal abscess. The cecum appeared normal. The terminal ileum appeared normal. The right ovary and fallopian tube appeared normal. The liver and gallbladder appeared normal. The ascending colon appeared normal. DESCRIPTION OF OPERATION The patient was placed in supine position on the operating table. General anesthesia was satisfactorily induced. A Dugan catheter was inserted into the urinary bladder. The abdomen was prepped and draped in routine sterile fashion. The skin and underlying structures at the abdominal wall at a supraumbilical incision site were infiltrated with bupivacaine 0.25% without epinephrine. A supraumbilical incision was made. The incision was extended down through the subcutaneous tissue down to the fascia under direct vision. A small incision was made through the fascia under direct vision. The peritoneal cavity was entered. A 5 mm port was placed this through the incision into the peritoneal cavity. This was a Ethan type of entry. Pneumoperitoneum was then established. A 5 mm laparoscope was inserted through the 5 mm supraumbilical port. The skin and underlying abdominal wall structures were infiltrated with Bupivacaine at an incision site at the right upper quadrant of the abdomen. A 12 mm port was placed at this right upper quadrant abdominal incision. The right side of the operating table was elevated at this time. The right side of the operating table was rolled up. The skin and underlying abdominal wall structures were infiltrated with Bupivacaine at an incision site at the right lower quadrant of the abdomen. This incision site was located inferior to the level of the appendix at the right lower quadrant. A 5 mm port was placed at this right lower quadrant abdominal incision. An aspirating cannula was inserted through the right lower quadrant port. The syringe was attached to the aspirating cannula and used to aspirate some purulent fluid from around the appendix into the syringe. This purulent fluid was then submitted to the laboratory for culture and sensitivity studies. A 5 mm endoscopic Antoine forceps was inserted at the right lower quadrant port and a 10 mm endoscopic Peever forceps was inserted at the right upper quadrant port and these instruments were used to elevate the cecum and mobilize the appendix and bluntly separate the appendix from surrounding structures. The appendix was elevated with the 5 mm endoscopic Antoine forceps inserted at the right lower quadrant port. The mesoappendix was divided with the Ethicon brand 5 mm laparoscopic ultrasonically activated coagulating kat. This was the Harmonic Ha ultrasonic kat. This instrument was introduced at the right upper quadrant port. The mesoappendix was coagulated and divided with the Ethicon brand 5 mm laparoscopic ultrasonically activated coagulating kat. The appendix was completely freed up in this manner all the way down to the base of the appendix where the appendix joined the cecum. Two separate 0 PDS Endoloop ligatures were then applied to the base the appendix adjacent to the cecum. The appendix was then divided just beyond these ligatures with a curved dissecting scissors. A specimen retrieval pouch was introduced at the right upper quadrant port and the appendix was placed in the specimen retrieval pouch. The specimen retrieval pouch containing the appendix was brought out through the right upper quadrant abdominal incision. The appendix was submitted as a specimen for study by the pathologist. The 12 mm port was reinserted at the right upper quadrant abdominal incision. The appendectomy site looked good. The appendiceal stump looked good. Hemostasis was satisfactory at the appendectomy site. Irrigation was performed throughout the right lower quadrant of the abdomen around the cecum. Irrigation was performed in the pelvis. Irrigation was performed at the right lateral gutter. All the irrigation fluid was then removed. Hemostasis remained satisfactory everywhere. The right lower quadrant port was removed. The right upper quadrant 12 mm port was removed. The laparoscope was removed. The supraumbilical port was removed. Carbon dioxide was removed from the peritoneal cavity by desufflation. The fascial layer of the right upper quadrant abdominal incision was closed with a series of simple interrupted stitches using 0 Vicryl suture. The fascial layer of the suprapubic incision was closed with a [id number] stitch using 0 Vicryl suture. Skin margins were then closed at all the incisions with subcuticular stitches using 4-0 Vicryl suture. Benzoin and 1/2 inch-wide Steri-Strips were applied to the incisions. Sterile dressings were applied. The patient tolerated the operation well. The patient was transferred from the operating room to the recovery room in satisfactory condition. CAMILO
[2017-08-18 08:29] VITALS: BP 117/75; RESP 18; TEMP 98.4; O2SAT 98
--- NOTE | 2017-08-18 10:41 | Progress Note ---
Progress Note: vss af doing great ready to go home instructions reviewed f/u with Varghese and Rosemary on q&a-krb
--- NOTE | 2017-08-18 10:42 | Discharge Instructions ---
Discharge Plan - Med Rec/Dispo Referrals/Follow Up: Eliseo Kwong MD [Physician] - () Frederick Riley DO [Physician] - () Prescriptions: New Oxycodone/Acetaminophen 5/325 [Percocet 5/325] 1 - 2 tab PO Q4H PRN #30 tab PRN Reason: Pain - Disposition 01 Discharged Home, Self-Care
--- NOTE | 2017-08-18 20:33 | Progress Note ---
DATE 08/18/2017 POSTOP DAY #1 HISTORY The patient has been tolerating her diet well. She has been up ambulating well. She has good pain control with oral analgesics. PHYSICAL EXAMINATION VITAL SIGNS: Temperature is 98.4 degrees Fahrenheit oral. Pulse is 100. Respiratory rate is 18. Blood pressure is 117/75. Oxygen saturation is 98% on room air. ABDOMEN: All the abdominal incisions look good. LABORATORY DATA White blood cell count is 11,400 with no bands on the morning of 08/18/2017. Hemoglobin is 10. Hematocrit is 31. IMPRESSION Doing well following laparoscopic appendectomy on 08/17/2017. PLAN Dismiss from [facility] at the discretion of Dr. Condon who is covering for Dr. Riley today. PATIENT EDUCATION I did review with the patient today some discharge instructions including diet instructions, wound care instructions and activity limitation instructions. I will have my nurse contact the patient to schedule her for an office visit with me on 08/23/2017. CAMILO
== END 2017-08-18 11:15 | disposition home or self-care (01) | DRG 781 ==
LOC: MC
PROVIDERS: ADMIT Obstetrics & Gynecology; ATTEND Obstetrics & Gynecology

== ENCOUNTER 2017-10-22 21:11 | Inpatient (IN) ==
--- OUTSIDE RECORDS SUMMARY | 2017-10-22 21:19 | External Medical Summary | Continuity of Care Document ---
:1990 Author Organization [facility] Address [address] [place], [place] [id number] Phone Allergies, Adverse Reactions, Alerts Substance Reaction Severity Status Penicillins Unknown Active Medications Medication Instructions Dosage Effective Dates Status Comments (start - stop) Tylenol 325 mg tablet take 2 tablet by oral 650 MG - Active route every 6 hours as needed Oral Anesthetic 20 % - Active mucosal gel acetaminophen ER 650 take 2 tablet by oral 1300 MG - Active mg tablet,extended route every 8 hours release as needed swallowing whole with water. Do not break, crush, dissolve and/or chew. Benadryl 25 mg capsule take 2 capsule by 50 MG - Active oral route every 4 - 6 hours as needed Problems Condition Effective Dates (start - stop) Clinical Status Obesity complicating , third - trimester Encounter for suprvsn of normal - , third trimester 33 weeks gestation of - Encntr screen for infections w sexl - mode of transmiss Encounter for screening for oth - infec/parastc diseases Encounter for suprvsn of normal - , first trimester Encounter for screening of - mother 9 weeks gestation of - Obesity complicating , second - trimester Encounter for suprvsn of normal - , second trimester 22 weeks gestation of - Obesity complicating , third - trimester Encounter for suprvsn of normal - , third trimester 28 weeks gestation of - Unspecified appendicitis - Unspecified abdominal pain - Encounter for suprvsn of normal - , second trimester Unspecified contact dermatitis, - unspecified cause Encounter for suprvsn of normal - , first trimester 13 weeks gestation of - Gestational htn w/o significant - proteinuria, third trimester Polyhydramnios, third trimester, not - applicable or unsp Obesity complicating , third - trimester 35 weeks gestation of - Gestational htn w/o significant - proteinuria, third trimester Polyhydramnios, third trimester, not - applicable or unsp Encounter for suprvsn of normal - , third trimester 35 weeks gestation of - Polyhydramnios, third trimester, not - applicable or unsp Obesity complicating , third - trimester Encounter for suprvsn of normal - , third trimester 36 weeks gestation of - Obesity complicating , second - trimester Encounter for suprvsn of normal - , second trimester 27 weeks gestation of - Unspecified abdominal pain - Encounter for suprvsn of normal - , second trimester 27 weeks gestation of - Encounter for suprvsn [...] Team Description For Visit Members [facility] Polyhydramnios, Nov-2 Sobbing Referring In Womens third trimester, 0-201 [place]. Provider: Health [place], not applicable or 7 [facility] T, 1522, complicating Center [address], , [address], [facility], trimesterEncounte [address] [id number], r for suprvsn of 120, Leoncio 120, [place] normal , Speedy Speedy, tel: third [email or web address] [place], weeks gestation [id number], [id number]. of [place]. tel: tel: [phone] Samuel Ruff Gestational htn Nov-1 Sobbing Referring In Womens w/o significant 6-201 [place]. Provider: Health [place], proteinuria, 7 700 [address] third Medical [place] T, 152, trimesterPolyhydr Center [address], amnios, third [facility], trimester, not Suite Center [id number], applicable or 120, Leoncio 120, [place] unspEncounter for Ruff Speedy, tel: suprvsn of normal [place], [place], , third [id number], [id number]. [email or web address] weeks [place]. tel: gestation of tel: [phone] Samuel Ruff Gestational htn Nov-1 Sobbing Referring In Womens Ultrasound w/o significant 6-201 [place]. Provider: Health [place], proteinuria, 7 700 [address] third Medical [place] T, 1522, trimesterPolyhydr Center [address], amnios, third [facility], trimester, not Suite Center [id number], applicable or 120, Leoncio 120, [place] unspObesity Speedy Speedy, tel: complicating [place], [place], , third [address], [id number]. [email or web address] weeks [place]. tel: gestation of tel: [phone] Samuel Ruff Obesity Oct-3 Sobbing Referring In Womens complicating 201 [place]. Provider: [facility] [place], , third 7 700 [address] [facility] [place] T, 152, r for suprvsn of Center [address], normal , [facility], third [email or web address] Suite Center [id number], weeks gestation 120, Leoncio 120, [place] of Ruff Speedy, [place]: [place], [address], [id number]. [place]. tel: tel: [phone] Samuel Ruff Obesity Sep-2 Sobbing Referring In Womens complicating 8-201 [place]. Provider: Jayne SANTIAGO, , third 7 700 [address] trimesterEncounte Medical [place] T, 152, r for suprvsn of Center [address], normal , [facility], third [email or web address] Suite Center [id number], weeks gestation 120, Leoncio 120, [place] of Speedy Ruff, tel: [place], [address], [id number]. [place]. tel: tel: [phone] [facility] Unspecified Sep-2 Sobbing Referring In Womens appendicitisUnspe 1-201 [place]. Provider: Jayne SANTIAGO, cified abdominal 7 700 [address] painEncounter for Medical [place] T, 1521, suprvsn of normal Center [address] [place] [address], , second [facility], trimester Suite Center [id number], 120, Leoncio 120, [place] Speedy Ruff, tel: [place], [address], [id number]. [place]. tel: tel: [phone] Samuel Ruff Unspecified Sep-2 Sobbing Referring In Womens abdominal 1-201 [place]. Provider: Jayne SANTIAGO, painEncounter for 7 700 [address] PO Box suprvsn of normal Medical [place] T, 1521, , second Center [address] [place] [address], [email or web address] weeks [facility], gestation of Suite Center [id number], 120, Leoncio 120, [place] Speedy Ruff, tel: [place], [address], [id number]. [place]. tel: tel: [phone] Samuel Ruff Obesity Sep-1 Sobbing Referring In Womens complicating 5-201 [place]. Provider: Jayne SANTIAGO, , second 7 700 [address] PO Box trimesterEncounte Medical [place] T, 1521, r for suprvsn of Center [address], normal , [facility], second Suite Center [id number], [email or web address] weeks 120, Leoncio 120, [place] gestation of Speedy Ruff, tel: [place], [place], [address], [id number]. [place]. tel: tel: [phone] Samuel Ruff Obesity Aug- Sobbing Referring In Womens complicating [place]. Provider: Health JACK, , second 7 700 [address] PO Box trimesterEncounte Medical [place] T, 1522, r for suprvsn of Center [address] [place] [address], normal , [facility], second Suite Center [id number], [email or web address] weeks 120, Leoncio 120, [place] gestation of Speedy Ruff, tel: [place], [address], [id number]. [place]. tel: tel: [phone] Samuel Ruff Encounter for May-2 Sobbing Referring In Womens Ultrasound suprvsn of normal [place]. Provider: Jayne SANTIAGO, , second 7 700 [address] PO Box [email or web address] weeks Medical Johnson T, 1522, gestation of [address], [facility], Suite Center [id number], 120, Leoncio 120, [place] Speedy Ruff, tel: [place], [address], [id number]. [place]. tel: tel: [phone] Samuel Ruff Encounter for May- Sobbing Referring In Womens suprvsn of normal [place]. Provider: Jayne SANTIAGO, , second 7 700 [address] PO Box [email or web address] weeks Medical Johnson T, 1522, gestation of Center [address] [place] [address], [facility], Suite Center [id number], 120, Leoncio 120, [place] Speedy Ruff, tel: [place], [address], [id number]. [place]. tel: tel: [phone] Samuel Ruff Unspecified Jamie- Johnson Referring In Womens contact Megha. Provider: Jayne SANTIAGO, dermatitis, 7 700 [address] PO [address] unspecified Medical [place] T, 1522, causeEncounter Center [address] [place] [address], for suprvsn of , [facility], normal , 120, Center [id number], first Ruff, Leoncio 120, [place] weeks gestation [place], Ruff, tel: of [phone] [place], , [place]. [id number]. tel: tel: [phone] [facility] Encntr screen for Johnson Referring In Womens infections w sexl 6-201 Meg[place]. Provider: Health [place], mode of 7 700 Meg[address] [facility] [place] T, 1522, r for screening Center [address], for oth , [facility] Medical [facility] infec/parastc 120, Center [id number], diseasesEncounter Speedy, [facility] 120, [place] for suprvsn of Speedy [place]IVAN, tel: normal , [phone] [place], first , [place]. [id number]. trimesterEncounte tel: tel: r for [phone] screening of mother9 weeks gestation of Family [...] Breast Cancer Immunizations Vaccine Date Status Comments Tdap completed Source: New Immunization Record Payers Payer name Insurance type Covered constitution party ID Authorization(s) [facility] [id number] [facility] [id number] Social History Type Description Quantity Date Captured Alcohol Use Details No Caffeine Use Details Unknown Tobacco Use Status Smoking Status Former smoker Vital Signs Date / Height Weight BMI Pulse Blood Temperature Respiratory Body Head BMI Time: Rate Pressure Rate Surface Circumference percentile Area 218.10 36.2 133/ lbs 9 mm[Hg] 1:40 kg/m PM eter (2) Chief Complaint And Reason For Visit Unknown Chief Complaint And Reason For Visit Reason For Referral Reason For Referral Unknown Plan Of Care Date Type Action Status Appointment Cari An BOOKED Appointment Cari An BOOKED Appointment Cari An BOOKED Appointment Cari An BOOKED Appointment Cari An BOOKED Appointment Cari An BOOKED Future Order: Radiology Order Ultrasound OB Follow-up ([id number]) Ordered Future Order: Radiology Order Biophysical Profile without NST Ordered ([id number]) Future Order: Radiology Order Complete OB Ultrasound > 14 Ordered Weeks ([id number]) Date Type Problem Goal Intervention Status Start [...]
--- NOTE | 2017-10-22 21:39 | Anesthesia Preoperative Report ---
Anesthesia Epidural/Spinal Rec - Date and Time Date: 10/22/17 Procedure: Labor Epidural Plan: Epidural - Vital Signs /Para: P:1 - Medictaions & Allergies Allergies/Adverse Reactions: Allergies Allergy/AdvReac Type Severity Reaction Status Date / Time Penicillins Allergy Verified 08/16/17 15:07 - Home Medications Home Medications: Home Medications Medication Instructions Recorded Confirmed Type Cough Syrup 10/22/17 History Tylenol 10/22/17 History - Medical History Respiratory: DENIES: Sleep Apnea Cardiovascular: Reports: Hypertension (PIH), Other (swelling) Gastrointestional: Reports: Morbid Obesity Neuro/Musculoskeletal: Reports: Back Problems (back pain), Headaches, Other ( anxiety ) Other History: Reports: Now - Surgical History GI Surgery/Treatments: Reports: Appendectomy Reproductive Surgery/Treatment: DENIES: Section Anesthesia Reactions: None Hx Family Anesthesia Reaction: No History of Motion Sickness: No - Social History Smoking Status: Never smoker Second Hand Exposure: No Substance Use Type: does not use Alcohol Intake Frequency: holidays/special occasions only Hx Chewing Tobacco Use: No - Physical Exam Respiratory Exam: lungs clear Cardiovascular Exam: regular rate and rhythm - Airway Assessment Mallampati Score: II TMD: 3 Fingerbreadths Neck Extension: fair Overall Assessment: no airway concerns - ASA ASA Score: 2 - Discussion Discussion: Discussed risks/options/alternatives of anesthesia and questions answered. Patient consents. Nursing pain assessment noted. Anesthesia Discussion: family member Attestation Statement: Prior to the delivery of any anesthetic medication, I examined the patient, developed the plan, obtained the patient's consent and discussed the risk and benefits of the procedure with the patient/guardian.
[2017-10-22] MEDS ORDERED: NALOXONE 0.4 MG/ML INJECTION IVP PRN (21:40)
[2017-10-22] MEDS ORDERED: ROPIVACAINE 1% 10MG/ML INJ 200 MG, SUFentanil 50 MCG in NS 100 ML EPI PRN (21:40)
[2017-10-22] MEDS ORDERED: ONDANSETRON 4 MG/2 ML INJECTION IVP PRN (21:40)
[2017-10-22] MEDS ORDERED: DiphenhydrAMINE 50 MG/ML INJECTION IVP PRN (21:40)
[2017-10-22] MEDS ORDERED: METHYLERGONOVINE 0.2 MG/ML INJECTION IM PRN (21:45)
[2017-10-22] MEDS ORDERED: MAG-AL + SIM ORAL LIQUID 30ml PO PRN (21:45)
[2017-10-22] MEDS ORDERED: CALCIUM CARBONATE Chewable 500mg TABLET PO PRN (21:45)
[2017-10-22] MEDS ORDERED: ACETAMINOPHEN 500 MG TABLET PO PRN (21:45)
[2017-10-22] MEDS ORDERED: CARBOPROST 250 MCG/ML INJECTION IM PRN (21:45)
[2017-10-22 21:56] VITALS: BMI 36.3
[2017-10-23] MEDS ORDERED: OXYTOCIN DRIP 30 UNIT/500 ML ML IV PRN ×2 (02:00→12:36)
[2017-10-23] MEDS: LR 1,000 ML IV PRN ×2 (02:30→11:29)
[2017-10-23] MEDS: D5LR 1,000 ML IV PRN ×2 (02:30→11:29)
[2017-10-23] MEDS ORDERED: ROPIVACAINE 1% 10MG/ML INJ 200 MG, SUFentanil 50 MCG in NS 100 ML EPI PRN (10:33)
[2017-10-23] MEDS ORDERED: DiphenhydrAMINE 50 MG/ML INJECTION IVP PRN (10:33)
[2017-10-23] MEDS ORDERED: NALOXONE 0.4 MG/ML INJECTION IVP PRN (10:33)
[2017-10-23] MEDS ORDERED: ONDANSETRON 4 MG/2 ML INJECTION IVP PRN (10:33)
[2017-10-23] MEDS ORDERED: ACETAMINOPHEN 500 MG TABLET PO PRN (12:36)
[2017-10-23] MEDS ORDERED: MAG-AL + SIM ORAL LIQUID 30ml PO PRN (12:36)
[2017-10-23] MEDS ORDERED: Oxycodone/Acetaminophen 5/325 1 TAB PO PRN (12:36)
[2017-10-23] MEDS ORDERED: HYDROCORTISONE 2.5% CREAM 30gm RECTALLY PRN (12:36)
[2017-10-23] MEDS ORDERED: CALCIUM CARBONATE Chewable 500mg TABLET PO PRN (12:36)
[2017-10-23] MEDS ORDERED: DiphenhydrAMINE 25 MG CAPSULE PO PRN (12:36)
[2017-10-23] MEDS ORDERED: OXYTOCIN DRIP 30 UNIT/500 ML ML IV SCH (12:45)
--- NOTE | 2017-10-23 14:32 | Anesthesia Postoperative Note ---
- Date and Time Date: 10/23/17 Time: 14:25 - Status Patient Participated in Evaluation: Patient Participated in Person Respiratory Function: Airway Patent Cardiovascular Function: Regular Pulse Mental Status: Alert and Oriented Pain Intensity: 2 Hydration: Taking PO Fluids Complications During Recover: None Apparent - Follow-Up Instructions Instructions: Per Surgeon
--- NOTE | 2017-10-23 15:57 | Operative Note ---
DATE OF SERVICE 10/23/2017 DESCRIPTION Normal spontaneous vaginal delivery of a live male , name Jose, over intact perineum with epidural anesthesia. No meconium was noted. A shoulder cord was reduced at time of delivery. Spontaneous delivery of the placenta with a three-vessel cord. There were bilateral periurethral first-degree lacerations and a small first-degree perineal midline laceration that was repaired with 3-0 chromic. Estimated blood loss was 200 mL. Sponge, lap and needle counts were correct x 2. The patient tolerated delivery repair without any difficulty. Apgars were 7/9/9. weight was 3860 g (8 pounds 8.2 ounces ) with a length of 20.5. MTDD
[2017-10-23] MEDS: IBUPROFEN 800 MG TABLET PO PRN (18:39)
[2017-10-24] MEDS: IBUPROFEN 800 MG TABLET PO PRN (05:50)
--- NOTE | 2017-10-24 08:08 | OB/GYN Progress Note ---
OB-PP Progress Note - General PPD1 - Subjective Date: 10/24/17 Lochia: Moderate Pain: controlled Pain: Using Ibuprofen for cramping and working well. Voiding: voiding Nausea or Vomiting Present: No - Objective Vital Signs: Last Vital Signs Temp 98.0 F 10/24/17 00:41 Pulse 76 10/24/17 00:41 Resp 18 10/24/17 00:41 BP 110/65 10/24/17 00:41 Pulse Ox 99 10/23/17 15:30 Urine Output: good General: alert and oriented Abdomen: fundus firm Extremities: non-tender Edema: none - Assessment Assessment: - Plan Plan: routine care, discharge home
[2017-10-24] MEDS ORDERED: DOCUSATE CALCIUM 240 MG CAPSULE PO SCH (09:00)
[2017-10-24] MEDS ORDERED: PRENATAL VITAMIN TABLET PO SCH (09:00)
[2017-10-24 09:44] VITALS: BP 137/66; PULSE 89; RESP 16; TEMP 98.1; O2SAT 100
== END 2017-10-24 15:05 | disposition home or self-care (01) | DRG 775 ==
LOC: MC 21:11
PROVIDERS: ADMIT Obstetrics & Gynecology; ATTEND Obstetrics & Gynecology